=== PATIENT | female | born 1995 ===

== ENCOUNTER 2018-06-12 19:25 | Emergency (ER) | payer OTHER ==
[2018-06-12 19:39] VITALS: BP 138/99
[2018-06-12] MEDS ORDERED: Amoxicillin PO (*) 500 MG CAP PO ONE ×2 (20:17→20:20)
--- NOTE | 2018-06-12 20:20 | UC ---
Ear Complaint HPI - HPI Summary HPI Summary: ONSET OF RIGHT EAR PAIN AND MUTED HEARING TODAY AFTER RAHUL JUMPING. THINKS SHE MIGHT HAVE GOT SOME WATER IN HER EAR. NO FEVER OR URI SYMPTOMS. - History of Current Complaint Chief Complaint: UCEar Stated Complaint: R EAR COMPLAINT Time Seen by Provider: 06/12/18 19:34 Hx Obtained From: Patient Hx Last Menstrual Period: 2 WEEKS AGO Onset/Duration: Sudden Onset, Lasting Hours, Still Present Severity Initially: Moderate Severity Currently: Moderate Pain Intensity: 3 Pain Scale Used: 0-10 Numeric Aggravating Factors: Nothing Alleviating Factors: Nothing Associated Signs/Symptoms: Positive: Hearing Loss. Negative: Discharge, Swelling @, URI Symptoms - Allergies/Home Medications Allergies/Adverse Reactions: Allergies Allergy/AdvReac Type Severity Reaction Status Date / Time No Known Allergies Allergy Verified 06/12/18 19:39 Home Medications: Home Medications Levonorgestrel-Ethin Estradiol [Levora-28 Tablet] 1 tab PO DAILY 06/12/18 [ History Confirmed 06/12/18] Levothyroxine TAB* [Synthroid 125 MCG TAB*] 125 mcg PO DAILY 06/12/18 [History Confirmed 06/12/18] PMH/Surg Hx/FS Hx/Imm Hx Endocrine History: Hypothyroidism - Surgical History Surgical History: Yes Surgery Procedure, Year, and Place: WISDOM TEETH - Family History Known Family History: Negative: Hypertension - Social History Alcohol Use: None Substance Use Type: None Smoking Status (MU): Never Smoked Tobacco Review of Systems Constitutional: Negative ENT: Ear Ache Respiratory: Negative Cardiovascular: Negative Gastrointestinal: Negative All Other Systems Reviewed And Are Negative: Yes Physical Exam Triage Information Reviewed: Yes Appearance: Well-Appearing, No Pain Distress, Well-Nourished Vital Signs: Initial Vital Signs Temp 97.9 F 06/12/18 19:36 Pulse 91 06/12/18 19:36 Resp 16 06/12/18 19:36 BP 138/99 06/12/18 19:36 Pulse Ox 100 06/12/18 19:36 Vital Signs Reviewed: Yes Eyes: Positive: Conjunctiva Clear ENT: Positive: Hearing grossly normal, Pharynx normal, Other - LEFT TM NORMAL. RIGHT TM DULL, ERYTHEMATOUS, BULGING Neck: Positive: Supple, Nontender, No Lymphadenopathy Respiratory: Positive: No respiratory distress, No accessory muscle use Cardiovascular: Positive: Pulses Normal Abdomen Description: Positive: Soft Musculoskeletal: Positive: No Edema Neurological: Positive: Alert Psychological: Positive: Age Appropriate Behavior Skin: Negative: rashes Ear Complaint Course/Dx - Differential Dx/Diagnosis Provider Diagnoses: RIGHT AOM Discharge - Sign-Out/Discharge Documenting (check all that apply): Patient Departure All imaging exams completed and their final reports reviewed: No Studies - Discharge Plan Condition: Stable Disposition: HOME Prescriptions: Amoxicillin PO (*) [Amoxicillin 500 MG CAP*] 1,000 mg PO Q12H #38 cap Patient Education Materials: Ear Infection (ED) Referrals: [facility] [Provider Group] - If Needed - Billing Disposition and Condition Condition: STABLE Disposition: Home
[2018-06-12] MEDS ORDERED: Amoxicillin PO (*) 500 MG CAP ONE (20:24)
== END 2018-06-12 20:30 | disposition home or self-care (01) ==
LOC: UCEAST 19:25
DX: H66.91 Otitis media, unspecified, right ear (principal); E03.9 Hypothyroidism, unspecified; Z79.899 Other long term (current) drug therapy
CPT/HCPCS: 99202; A9270-GY; G0463